=== PATIENT | female | born 1980 | race Caucasian/White ===

== ENCOUNTER 2018-08-24 09:37 | Emergency (ER) | payer MEDICAID ==
[2018-08-24] MEDS: IBUPROFEN 600 MG TAB PO (09:57)
== END 2018-08-24 11:09 | disposition home or self-care (01) ==
LOC: FTE 09:37
DX: S63.501A Unspecified sprain of right wrist, initial encounter (principal); S60.221A Contusion of right hand, initial encounter; W19.XXXA Unspecified fall, initial encounter
CPT/HCPCS: 29125; 73110-RT; 73130-RT; 99283-25